=== PATIENT | male | born 1940 | race Caucasian/White ===

== ENCOUNTER 2023-01-03 03:37 | Day surgery (SDC) | payer MEDICARE, SELFPAY ==
--- NOTE | 2023-01-02 11:53 | PC.NURSE ---
Report to the Outpatient Waiting Room, entrance under the green pavilion located off [facility], at time __0830 on date 01/03/23 . Planned Procedure Time: _1030 . Time changes happen often and if your time is changed the preop area will call you the afternoon before. - You and your visitor will be asked to self-screen and do not enter if you have any COVID symptoms. - A mask is optional within the hospital at this time. Patients may have clear liquids (water, carbonated beverages, clear teas, apple juice) until 3 hours prior to surgery with a maximum of 20 ounces. - No food from midnight until time of surgery - Infants may have breast milk until 4 hours before surgery, formula 6 hours prior to surgery. - Children will be allowed to drink immediately following surgery. If applicable, please bring a bottle or sippy cup to assist with drinking. Juice, water, soda, and popsicles are readily available. For infants on formula, please bring formula the day of surgery. Pacifiers are allowed. Take the following medications with a SIP of water the morning of surgery: __CLONAZEPAM,METOPROLOL DO NOT STOP ANY OF YOUR OTHER PRESCRIPTION MEDICATIONS PRIOR TO SURGERY ?EXCEPT THE FOLLOWING Medications to discontinue per physician ____ASPIRIN LAST DOSE 01/01/23. - STATES HOLD PLAVIX__.LAST DOSE 12/30/22 DR LUCERO MADE AWARE _ Please no make-up, nail french, hairspray, perfume, deodorant, or body powder the day of surgery. No jewelry (including any body piercings) or valuables the day of surgery, leave them at home. Please take a shower or bath the night before, or the morning of, surgery with an antibacterial soap. Wear comfortable, loose fitting clothing. Children are encouraged to wear pajamas. - Jewelry must be removed prior to entering the operating room. Rings and piercings that are not removed may be cut off. - The hospital will not accept responsibility for valuables. - Please leave all valuables, including medications, at home the day of surgery. If you are going home after surgery, a licensed electric mule driver must drive you home. - NO public transportation without another adult if you receive anesthesia. - We recommend that an adult stay with you for 24 hours following discharge. - We also recommend that you do not drive, make important decision, drink alcoholic beverages, or take any drugs that were not prescribed by your health care provider for at least 24 hours after your discharge time. For Pediatric surgeries, we recommend two adults accompany the child home. Follow any additional instructions given to you from your surgeon. If you or anyone in your household have experienced Covid symptoms in the past week, please notify your surgeon or the nurse liaison at the phone number below for possible testing. Telephone instructions given to __PT'S JEANNE and asked if any additional questions and then verbalized understanding. Patient advised to call surgeon office or pre surgery nurse liaison [phone] if any additional questions.
[2023-01-02 12:04] VITALS: BMI 33.7
[2023-01-03] VITALS (8 sets, daily range): BP systolic 128–155; BP diastolic 69–88; PULSE 69–96; RESP 12–18; TEMP 36.5–36.7; O2SAT 95–100; BMI 32.4
--- NOTE | ~2023-01-03 | XR_ITS ---
EXAMINATION: XR abdomen/kub 1V DATE: 01/03/2023 08:30 INDICATION: Left-sided renal stone. TECHNIQUE: A supine view of the abdomen on 2 radiographs was obtained. COMPARISON: None. FINDINGS: There are no dilated loops of bowel. Calcifications overlie the pelvis. The kidneys are obs cured by bowel. Two densities overlying the left kidney measuring up to 8 mm. IMPRESSION: 1. Calcifications in the pelvis, which may be phleboliths and/or ureteral stones. 2. Two densities measuring up to 8 mm overlie the left kidney, which may be stones. Reviewed, dictated and finalized at location A. IMPRESSION: 1. Calcifications in the pelvis, which may be phleboliths and/or ureteral stone s. 2. Two densities measuring up to 8 mm overlie the left kidney, which may be sto jaret.
--- NOTE | 2023-01-03 06:03 | ECG_ITS ---
Measurements Intervals [place] Rate: 83 P: 68 PA: 163 QRS: -2 QRSD: 102 T: 56 QT: 369 QTc: 434 Interpretive Statements SINUS RHYTHM DELAYED PRECORDIAL R/S TRANSITION BORDERLINE ECG NO PREVIOUS ECG AVAILABLE FOR COMPARISON Electronically Signed On 01-03-2023 9:32:57 CDT by Brayden Chavez D.O.
[2023-01-03] MEDS: LACTATED RINGERS 1,000 ML 30 ML IV CONT (09:00)
--- NOTE | 2023-01-03 09:15 | WPDANESEPPF ---
Anes - Initial Pre Proc Eval Procedure: Operation Date: 01/03/23 10:30 Proposed Procedures p Left Ureteral Extracorporeal Shock Wave Lithotripsy - Delgado Arambula MD s Possible Cystoscopy, Left Ureteroscopy, Left Retrograde Pyelogram, Left Stone Extraction, Left Stent Placement, Holmium Laser Procedure - Delgado Arambula MD Date/Time: 01/03/23 09:15 Surgeon: Delgado Arambula MD Pre Op Diagnosis: Lt Ureteral Stone Patient Data Age: 82 Gender: M Height: 1.75 m Weight: 99.7 kg Last Vital Signs Temp 36.5 C 01/03/23 08:33 Pulse 96 01/03/23 08:33 Resp 16 01/03/23 08:33 BP 128/80 01/03/23 08:33 Pulse Ox 97 01/03/23 08:33 O2 Del Method Room Air 01/03/23 08:33 Allergies Allergy/AdvReac Type Severity Reaction Status Date / Time No Known Allergies Allergy Verified 01/03/23 08:45 Home Medications Medication Instructions Recorded Confirmed Type albuterol sulfate 90 mcg/actuation 1 puff inhalation PRN PRN 01/02/23 01/02/23 History aerosol inhaler Shortness Of Breath aspirin 81 mg tablet,delayed 81 mg PO DAILY 01/02/23 01/03/23 History release (Adult Low Dose Aspirin) atorvastatin 20 mg tablet 20 mg PO DAILY 01/02/23 01/02/23 History clonazepam 0.5 mg tablet 0.5 mg PO DAILY 01/02/23 01/02/23 History clopidogrel 75 mg tablet 75 mg PO DAILY 01/02/23 01/03/23 History cyanocobalamin (vitamin B-12) 1,000 mcg PO DAILY 01/02/23 01/02/23 History 1,000 mcg tablet dutasteride 0.5 mg capsule 0.5 mg PO DAILY 01/02/23 01/02/23 History hydrocodone 5 mg-acetaminophen 325 1 tablet PO PRN PRN Pain 01/02/23 01/02/23 History mg tablet latanoprost 0.005 % eye drops 1 drp EACH EYE HS 01/02/23 01/02/23 History metoprolol tartrate 25 mg tablet 25 mg PO DAILY 01/02/23 01/02/23 History omeprazole 40 mg capsule,delayed 40 mg PO DAILY 01/02/23 01/02/23 History release quinapril 20 mg tablet 20 mg PO DAILY 01/02/23 01/02/23 History tamsulosin 0.4 mg capsule 0.4 mg PO DAILY 01/02/23 01/02/23 History Laboratory Tests 01/03/23 09:03 PT Pending INR Pending APTT Pending Patient hx anesthesia problems: none Family hx anesthesia problems: none Results Review: All pre-operative results and documents have been reviewed as part of the pre-operative evaluation. [facility] Past Medical History Medical History (Updated 01/03/23 @ 09:17 by James Cedeño DO) Asthma Bladder cancer CAD (coronary artery disease) Glaucoma History of heart attack 2000 Hyperlipidemia Hypertension Social History Social History Smoking packs per day: 2 Smoking cigarettes per day: 40.0 Years smoked: 60 Smoking pack-years: 120.00 Smoking status: Former smoker Tobacco type: cigarettes Smoking end date: 08/28/22 Living arrangements: with family Spiritual care concerns: No Anes - Eval Final PreProcedure Day of Procedure 01/03/23 09:15 Patient weight: obese Heart: regular rate and rhythm Lungs: clear to auscultation Airway: Mallampati scale class II Neurological: alert and oriented Last oral intake: >/= 8 hours ASA classification: III Emergent: no Anesthetic plan: proceed Anesthesia type and monitoring: general LMA and standard monitoring Results Review: All pre-operative results and documents have been reviewed as part of the pre-operative evaluation. Informed Consent: The patient's anesthetic plan and its attendant risks and benefits were discussed with the patient/family/POA. Questions were solicited and answers provided to the satisfaction of the patient/family/POA.
[2023-01-03 09:17] LABS: Partial Thromboplastin Time 28.1 SECONDS (22.3-36.8); Prothrombin Time 13.3 Seconds (11.1-14.7)
--- NOTE | 2023-01-03 09:50 | WPDHPUPDATE1 ---
History and Physical Update Update Date/Time: 01/03/23 09:50 History and Physical has been reviewed, including an updated exam of the patient. There are NO changes in the patient's condition. Risks, benefits, and alternatives have been discussed and questions answered. Patient agrees to proceed with procedure. Proceed with left ureteral lithotripsy, possible ureteroscopy, laser, stent placement
[2023-01-03] MEDS: ceFAZolin 2 GM/D5W 50 ML 2 GM/50 ML BAG IVPB (10:12)
--- NOTE | 2023-01-03 10:54 | W.PM.PROC2 ---
Procedure Note - Detailed Date of Procedure 01/03/23 Pre-op Diagnosis Lt Ureteral Stone Post-op Diagnosis Same Procedure Performed Lithotripsy of distal left ureteral calculus 8 mm Surgeon Delgado Arambula MD Anesthesia General Description of Procedure Patient is taken to the operative suite correctly identified. Once anesthesia was obtained the stone was localized in both planes. Three thousand shocks were given the stone. There appeared to be good fragmentation. Patient is taken recovery stable condition. Will follow-up in 7-10 days with KUB. This completes sedation on this patient. Please send a copy of this operative note to my office Drains No Packing No Pathology None sent Complications No immediate complications Condition Stable Disposition PACU
== END 2023-01-03 12:47 | disposition home or self-care (01) ==
PROVIDERS: Visit Provider Urology
PROC: (CPT 50590; principal; 2023-01-03 10:30)
DX: N20.1 Calculus of ureter (principal); I25.10 Atherosclerotic heart disease of native coronary artery without angina pectoris; I10 Essential (primary) hypertension; E78.5 Hyperlipidemia, unspecified; I25.2 Old myocardial infarction; J45.909 Unspecified asthma, uncomplicated; H40.9 Unspecified glaucoma; Z85.51 Personal history of malignant neoplasm of bladder; Z87.891 Personal history of nicotine dependence; E66.9 Obesity, unspecified; Z68.32 Body mass index [BMI] 32.0-32.9, adult; Z79.02 Long term (current) use of antithrombotics/antiplatelets; Z79.82 Long term (current) use of aspirin; Z79.51 Long term (current) use of inhaled steroids
CPT/HCPCS: 50590; 36415; 74018; 85610; 85730; 93005; J0690; J2371; J2405; J2704; J3010; J7120

== ENCOUNTER 2023-01-24 15:08 | Outpatient (CLI) | payer MEDICARE, SELFPAY ==
--- NOTE | ~2023-01-24 | XR_ITS ---
XR abdomen/kub 1V 01/24/2023 15:27 Indication: History of kidney stones. Procedure: KUB Comparison: 01/03/2023 Findings: Bowel pattern is nonobstructive. There is a calcification in the left mid abdomen, likely a renal stone. There are pelvic phleboliths. There is moderate lumbar spondylosis. Impression: 1: Left nephrolithiasis. Reviewed, dictated and finalized at location A. Impression: 1: Left nephrolithiasis.
== END 2023-01-24 15:09 | disposition home or self-care (01) ==
PROVIDERS: Visit Provider Urology
DX: N20.0 Calculus of kidney (principal)
CPT/HCPCS: 74018